=== PATIENT | male | born 1965 | race Caucasian/White ===

== ENCOUNTER 2018-12-23 14:56 | Outpatient (CLI) | payer BC ==
--- NOTE | 2018-12-23 15:16 | RAD ---
BENDING LATERAL PROJECTIONS OF THE LUMBAR SPINE Images: 3 INDICATION: Low back pain with spondylosis, myelopathy and radiculopathy. Spondylolisthesis COMPARISON: None FINDINGS: Disc and facet joints: There is moderate multilevel disc degenerative disease. There is vacuum disc p henomenon at L2-3. Fracture: None. Alignment: Spinal alignment appears within normal limits. No abnormal translational motion is demonst rated. Prevertebral soft tissues: There are scattered vascular calcifications involving the abdominal aorta. Visualized bowel gas pattern is unremarkable.. IMPRESSION: No abnormal translational motion demonstrated. Moderate spondylosis of the lumbar spine.
== END 2018-12-23 14:57 | disposition home or self-care (01) ==
LOC: TBSIIMAG 14:56
PROVIDERS: ATTEND Neurological Surgery
DX: M47.26 Other spondylosis with radiculopathy, lumbar region (principal)
CPT/HCPCS: 72100